=== PATIENT | female | born 1955 | race Caucasian/White ===

== ENCOUNTER → 2016-08-15 | Outpatient (CLI) | payer BC ==
--- NOTE | 2016-08-18 20:27 | Diagnostic Imaging Report ---
INDICATION: Screening. COMPARISON: 08/07/2014. The current digital study was evaluated with a Computer Aided Detection (CAD). FINDINGS: There is question of a small oval density developing in the retroareolar region of the right breast in the mid depth. No other masses are seen. No clustered calcifications. No architectural distortion. IMPRESSION: 1. Question of small soft tissue density developing mid depth retroareolar region of the right breast. Would recommend additional spot compression views and ultrasound if persistent. ACR BI-RADS Category 0: Incomplete. (Needs additional imaging evaluation). Result letter will be mailed to the patient. Note: At least 10% of breast cancer is not imaged by mammography. Dictated by: Dictated on workstation # [id number]
== END ==
LOC: RAD 07:58
PROVIDERS: ATTEND Family Medicine
DX: Z12.31 Encounter for screening mammogram for malignant neoplasm of breast (principal)

== ENCOUNTER → 2016-08-25 | Outpatient (CLI) | payer BC ==
--- NOTE | 2016-08-25 14:19 | Diagnostic Imaging Report ---
INDICATION: Recall from screening. TECHNIQUE: Multiple real-time grayscale images were obtained through the central portion of the right breast and inferior. FINDINGS: No cyst, solid mass, distortion or other lesion is identified. IMPRESSION: Negative targeted ultrasound of the right breast. Dictated by: Dictated on workstation # [id number]
--- NOTE | 2016-08-25 14:21 | Diagnostic Imaging Report ---
INDICATION: Recall from screening. COMPARISONS: 08/15/2016, 08/07/2014. TECHNIQUE: Multiple additional mammographic views of the right breast were performed. A concomitant right breast ultrasound was also performed. FINDINGS: Multiple additional mammographic views do not demonstrate any mass, architectural distortion, or other worrisome feature. Ultrasound of the right breast was also negative. IMPRESSION: Additional imaging evaluation of the right breast is negative for malignancy. Followup in 1 year. ACR BI-RADS Category 1: Negative. Result letter will be mailed to the patient. Note: At least 10% of breast cancer is not imaged by mammography. Dictated by: Dictated on workstation # [id number]
== END ==
LOC: RAD 08:56
PROVIDERS: ATTEND Family Medicine
DX: R92.2 Inconclusive mammogram (principal)
CPT/HCPCS: 76642; G0206